=== PATIENT | male | born 2000 | race Caucasian/White ===

== ENCOUNTER 2020-02-02 15:31 | Emergency (ER) | payer MEDICAID, SELFPAY ==
[2020-02-02 15:32] VITALS: BP 122/90; PULSE 69; RESP 18; TEMP 36.4; O2SAT 100; BMI 26.6
--- NOTE | 2020-02-02 15:54 | ED.VIS.UPPEX ---
History of Present Illness Chief Complaint: Wound Check Informant: Patient Occurred: Yesterday Mechanism/Context: Injury Timing: Continuous Quality of Pain: - - sore Location: left thumb Current Severity: Mild Maximum Severity: Moderate Worsened by: palpation Relieved by: leaving alone Associated Symptoms: Negative for: Parasthesia, Weakness, Loss of Funtion Narrative: Patient accidentally cut his left thumb on a circular saw yesterday, he was seen at outside hospital in [place] and had it repaired. He was not prescribed any medications. He unwrapped it for the first time today was concerned about the appearance of it and presents for evaluation. No fevers or significant drainage except for a little blood on the dressing. Past Medical History - Allergies and Home Meds Allergies/Adverse Reactions: Allergies No Known Allergies Allergy (Verified 02/02/20 15:33) Primary Care Physician: Walter Lu,Out of [Primary Care Provider] - Past Medical History: None Lives: With Family Smoking Status: Current some day smoker Review of Systems General: Denies: Chills, Fever, Sweats Musculoskeletal: Reports: Extremity Pain Skin: Reports: Wounds. Denies: Rash Neurological: Denies: Headache, Weakness, Numbness Physical Exam Vital Signs/Narrative: Vital Signs Temp Pulse Resp BP Pulse Ox 02/02/20 15:32 97.6 F L 69 18 122/90 H 100 General: Well nourished, Well developed, - - Well-appearing no distress Head: Normocephalic, Atraumatic Skin: Normal color - Except for ecchymosis on the triangular flap of skin at the volar left thumb that is sutured and intact. No necrotic tissue., No rash, - - Triangular-shaped large flap with sutures intact, left thumb pad distal phalanx, there is a small area of what appears to be epidermal tissue loss at the radial aspect of the wound, proximally. There is a suture here that is intact. It does not go all the way across the wound. It appears to be sutured appropriately. There is no discharge, dehiscence, significant swelling. Neurological: Alert, Oriented x3, Cranial nerves II-XII grossly intact, Normal Strength, Normal Sensation, Normal Gait Psychological: Normal affect, Normal Mood Diagnostic/Tx/Re-eval - Medical Decision Making I reassured the patient that the wound looks good and healthy. The repair appears appropriate. There is a small area of tissue loss that I would have not pulled together, given what it appears like now although certainly as I discussed with the patient I did not see the wound before it was repaired. However I see no signs of infection. I think it would be reasonable to put him on prophylactic cephalexin, given that the wound appears to be deep, however it was very superficial before it was repaired, it may not need prophylactic antibiotics. He was not put on any, so I will put him on 5 days of cephalexin, we dressed it with bacitracin, and advised him to do the same to follow-up with his doctor as advised. ED Disposition - Plan for ED Patient: Disposition: Home or Assisted Living Diagnosis: Visit for wound check Instructions: ED Sutr Check No Infec Prescriptions: Cephalexin [Keflex] 500 mg PO TID #15 cap Prescription Printed Referrals: Walter Doctor,Out of [Primary Care Provider] - 10-14 Days suture removal
== END 2020-02-02 16:26 | disposition home or self-care (01) ==
LOC: ED 16:19
PROVIDERS: Emergency Provider Emergency Medicine
DX: S61.012D Laceration without foreign body of left thumb without damage to nail, subsequent encounter (principal); F17.200 Nicotine dependence, unspecified, uncomplicated; W29.3XXD Contact with powered garden and outdoor hand tools and machinery, subsequent encounter
CPT/HCPCS: 99282